=== PATIENT | male | born 1960 | race Caucasian/White ===

== ENCOUNTER 2020-02-08 18:26 | Inpatient (IN) | payer BC, OTHER ==
[2020-02-08] MEDS ORDERED: VANCOMYCIN 1 GM/VIAL ONE (19:14)
[2020-02-08] MEDS ORDERED: NA CHLORIDE 0.9% 250 ML ONE (19:14)
[2020-02-08] MEDS ORDERED: ACETAMINOPHEN 500 MG TAB ONE (19:14)
[2020-02-08] MEDS ORDERED: NA CHLORIDE 0.9% 500 ML ONE (19:15)
[2020-02-08] MEDS ORDERED: NA CHLORIDE 0.9% 3,000 ML ONE (19:15)
--- NOTE | 2020-02-08 19:25 | RAD REPORT ---
EXAM DESCRIPTION: Lisa Single View02/08/2020 7:20 pm CLINICAL HISTORY: sob COMPARISON: none FINDINGS: The lungs appear clear of acute infiltrate. The heart is normal size IMPRESSION: No acute abnormalities displayed
[2020-02-08 19:43] LABS: Absolute Lymphocytes (CBC) 2.6 K/uL (0.7-4.9); Basophils % 0.7 % (0-1.3); Hematocrit 40.5 % (39.6-49.0); Lymphocytes % 16.8 % (15.3-44.8); MPV 9.8 fL (7.6-11.3); RBC Red Blood Cell Count 4.56 M/uL (4.33-5.43)
[2020-02-08 19:54] LABS: ALT/SGPT 32 U/L (12-78); AST/SGOT 26 U/L (15-37); Albumin 3.2 g/dL (3.4-5.0); Alkaline Phosphatase 114 U/L (45-117); BUN Blood Urea Nitrogen 11 mg/dL (7-18); Bicarbonate 23 mmol/L (21-32); Bilirubin Direct 0.1 mg/dL (0-0.2); Bilirubin Total 0.6 mg/dL (0.2-1.0); Creatine Phosphokinase 140 U/L (39-308); Glucose Level 206 mg/dL (74-106); Lipase 68 U/L (73-393); Potassium 3.9 mmol/L (3.5-5.1); Protein, Total 8.5 g/dL (6.4-8.2); Sodium Level 133 mmol/L (136-145); Troponin (Emerg Dept Use Only) < 0.02 ng/mL (0.0-0.045)
[2020-02-08 19:55] LABS: Protime INR 1.12
--- NOTE | 2020-02-08 20:55 | RAD REPORT ---
EXAM DESCRIPTION: CT - Chest Abdomen Pelvis W Cont - 02/08/2020 8:39 pm CLINICAL HISTORY: Shortness of breath/abdominal pain COMPARISON: None TECHNIQUE: Computed axial tomography of the chest, abdomen and pelvis was obtained. 100 cc Isovue-30 0 was administered intravenously. Oral contrast was not requested. This limits evaluation of bowel. All CT scans are performed using dose optimization technique as appropriate and may include automated exposure control or mA/KV adjustment according to patient size. FINDINGS: 6 x 3 centimeter area of consolidation is present within the medial left lower lobe. Calci fied granuloma is present within the right lung. No mediastinal or hilar lymphadenopathy No pleural effusion Fatty liver The spleen, pancreas, adrenals and kidneys unremarkable No evidence of diverticulitis. Minimal anterior subluxation L5 on S1. Spondylolysis L5 IMPRESSION: A 6 x 3 centimeter area of consolidation medial left lower lobe consistent with pneumoni a. This should be followed until it has cleared to help exclude post obstructive process/underlying m ass
--- NOTE | 2020-02-08 21:14 | ER ---
Nurse's Notes [facility] Name: Patrice Moya Age: 59 yrs Sex: Male : 1960 Arrival Date: 02/08/2020 Time: 18:29 Bed 15 Private MD: Diagnosis: Severe sepsis;Pneumonia due to other specified bacteria Presentation: 02/07 18:34 Chief complaint: Patient states: Fever, cough and SOB since last night. Coronavirus ca1 screen: Surgical mask placed on patient. Patient moved to private room, placed in contact and droplet isolation with eye protection until further assessment. Patient reports a cough. Patient reports shortness of breath or difficulty breathing. Patient reports a measured and/or subjective temperature greater than 100.4F. Patient denies travel on a cruise ship or to a country the [facility] currently lists as an affected area. Patient denies contact with known and/or suspected case of COVID-19. Ebola Screen: Patient negative for fever greater than or equal to 101.5 degrees Fahrenheit, and additional compatible Ebola Virus Disease symptoms Patient denies exposure to infectious person. Patient denies travel to an Ebola-affected area in the 21 days before illness onset. No symptoms or risks identified at this time. Initial Sepsis Screen: Does the patient meet any 2 criteria? Temp <36.0*C (96.8*F)) or > 38.3*C (100.9*F). HR > 90 bpm. Yes Does the patient have a suspected source of infection? Yes: Productive cough/pneumonia. Risk Assessment: Do you want to hurt yourself or someone else? Patient reports no desire to harm self or others. Onset of symptoms was February 08, 2020. 18:34 Method Of Arrival: Ambulatory ca1 18:34 Acuity: ЕЛЕНА 2 ca1 Triage Assessment: 18:48 General: Appears in no apparent distress. comfortable, obese, Behavior is calm, bp cooperative, appropriate for age. Pain: Complains of pain in right flank. EENT: No deficits noted. Neuro: No deficits noted. Cardiovascular: Rhythm is sinus tachycardia. Respiratory: Reports shortness of breath cough that is Onset: The symptoms/episode began/occurred today, the patient has moderate shortness of breath. GI: No signs and/or symptoms were reported involving the gastrointestinal system. : No signs and/or symptoms were reported regarding the genitourinary system. Derm: No deficits noted. Musculoskeletal: No deficits noted. Historical: - Allergies: 18:37 Aspirin; ca1 - PMHx: 18:37 Diabetes - NIDDM; Hypertension; ca1 - Immunization history:: Adult Immunizations up to date, Pneumococcal vaccine is up to date, Flu vaccine is up to date. - Social history:: Smoking status: Patient reports the use of cigarette tobacco products, smokes one pack cigarettes per day. Screenin:53 Abuse screen: Denies threats or abuse. Denies injuries from another. Nutritional bp screening: No deficits noted. Tuberculosis screening: No symptoms or risk factors identified. Fall Risk None identified. Assessment: 18:52 General: SEE TRIAGE NOTE. Cardiovascular: Rhythm is sinus tachycardia. Respiratory: bp Airway is patent Respiratory effort is even, unlabored, Breath sounds are coarse bilaterally. 19:51 General: Appears in no apparent distress. comfortable, Behavior is calm, cooperative. mg2 Pain: Complains of pain in back and right flank. Neuro: Level of Consciousness is awake, alert, obeys commands, Oriented to person, place, time, situation. Respiratory: Reports shortness of breath cough that is. GI: No signs and/or symptoms were reported involving the gastrointestinal system. :. EENT: No signs and/or symptoms were reported regarding the EENT system. Derm: Skin is intact, is healthy with good turgor, Skin is pink, warm \T\ dry. normal. Musculoskeletal: Circulation, motion, and sensation intact. Capillary refill < 3 seconds. 20:21 Reassessment: Patient appears in no apparent distress at this time. Patient and/or mg2 family updated on plan of care and expected duration. Pain level reassessed. Patient is alert, oriented x 3, equal unlabored respirations, skin warm/dry/pink. 22:29 Reassessment: Patient appears in no apparent distress at this time. Patient and/or mg2 family updated on plan of care and expected duration. Pain level reassessed. Patient is alert, oriented x 3, equal unlabored respirations, skin warm/dry/pink. 22:30 Reassessment: nurse from [facility] will call me back to receive the report. mg2 02/08 00:20 Reassessment: Patient appears in no apparent distress at this time. mg2 00:20 Reassessment: called for report but the nurse is still busy. mg2 00:51 Reassessment: Patient appears in no apparent distress at this time. Patient and/or mg2 family updated on plan of care and expected duration. Pain level reassessed. Patient is alert, oriented x 3, equal unlabored respirations, skin warm/dry/pink. Vital Signs: 02/07 18:34 BP 141 / 81; Pulse 121; Resp 19 S; Temp 103.1(O); Pulse Ox 97% on R/A; Weight 124.74 kg ca1 (R); Height 5 ft. 8 in. (172.72 cm) (R); Pain 3/10; 20:20 Temp 101.3(O); mg2 21:00 BP 137 / 67; Pulse 96; Resp 18; Pulse Ox 97% on R/A; mg2 22:22 BP 145 / 78; Pulse 88; Resp 17; Temp 99(O); Pulse Ox 98% on R/A; mg2 23:30 BP 135 / 78; Pulse 81; Resp 18; Pulse Ox 98% on R/A; mg2 02/08 00:38 BP 125 / 78; Pulse 82; Resp 18; Temp 101(O); Pulse Ox 98% on R/A; mg2 02/07 18:34 Body Mass Index 41.81 (124.74 kg, 172.72 cm) ca1 ED Course: 02/07 18:29 Patient arrived in ED. ag5 18:36 Triage completed. ca1 18:37 Arm band placed on right wrist. ca1 18:38 Ady Correia, CHERRY is Primary Nurse. bp 18:38 Filemon Dorsey PA is PHCP. jr8 18:38 Oswaldo Mosquera MD is Attending Physician. jr8 18:53 Patient has correct armband on for positive identification. Bed in low position. Call bp light in reach. Side rails up X2. 19:21 Chest Single View XRAY In Process Unspecified. EDMS 19:30 Inserted saline lock: 20 gauge in right forearm, using aseptic technique. Blood mg2 collected. 19:51 No provider procedures requiring assistance completed. mg2 20:39 CT Chest, Abdomen, Pelvis - W/Contrast In Process Unspecified. EDMS 21:12 Conner Romero MD is Hospitalizing Provider. jr8 21:58 Patient admitted, IV remains in place. mg2 Administered Medications: 19:30 Drug: Acetaminophen 1000 mg Route: PO; mg2 21:58 Follow up: Response: No adverse reaction mg2 19:38 Drug: NS 0.9% (30 ml/kg) 30 ml/kg Route: IV; Rate: bolus; Site: right forearm; mg2 22:21 Follow up: Response: No adverse reaction; IV Status: Completed infusion; IV Intake: mg2 3500ml 19:38 Drug: Cefepime 1 grams Route: IVPB; Rate: 200 ml/hr; Infused Over: 30 mins; Site: right mg2 antecubital; 21:58 Follow up: Response: No adverse reaction; IV Status: Completed infusion mg2 20:20 Drug: vancoMYCIN 1 grams Route: IVPB; Infused Over: 2 hrs; Site: right antecubital; mg2 22:21 Follow up: Response: No adverse reaction; IV Status: Completed infusion; IV Intake: mg2 250ml 02/08 00:47 Drug: Tylenol 1000 mg Route: PO; mg2 01:04 Follow up: Response: No adverse reaction mg2 Intake: 02/07 22:21 IV: 3500ml; Total: 3500ml. mg2 22:21 IV: 250ml; Total: 3750ml. mg2 Output: 22:22 Urine: 800ml (Voided); Total: 800ml. mg2 Outcome: 21:12 Decision to Hospitalize by Provider. jr8 02/08 01:03 Admitted to Tele accompanied by nurse, via stretcher, room 413, with chart, Report mg2 called to CHERRY Parsons Condition: stable Instructed on the need for admit, Demonstrated understanding of instructions. 01:04 Patient left the ED. mg2 Signatures: Dispatcher [employer] EDMS Filemon Dorsey PA PA jr8 Ady Correia RN RN bp [place], Michele, RN RN mg2 Anu Bartlett RN RN ca1 Gaskin, Ajare 5
--- NOTE | 2020-02-08 21:14 | EDPHYS ---
Physician Documentation [facility] Name: Patrice Moya Age: 59 yrs Sex: Male : 1960 Arrival Date: 02/08/2020 Time: 18:29 Bed 15 Private MD: ED Physician Oswaldo Mosquera HPI: 02/07 20:09 This 59 yrs old Male presents to ER via Ambulatory with complaints of Fever, jr8 Flank Pain, Breathing Difficulty. 20:09 The patient reports fever, with an emergency department temperature of 103 degrees jr8 Fahrenheit. Onset: The symptoms/episode began/occurred acutely, yesterday. Modifying factors: there are no obvious modifying factors. Associated signs and symptoms: Pertinent positives: chest pain, cough. Severity of symptoms: At their worst the symptoms were moderate in the emergency department the symptoms are unchanged. The patient has not experienced similar symptoms in the past. The patient has not recently seen a physician. Historical: - Allergies: 18:37 Aspirin; ca1 - PMHx: 18:37 Diabetes - NIDDM; Hypertension; ca1 - Immunization history:: Adult Immunizations up to date, Pneumococcal vaccine is up to date, Flu vaccine is up to date. - Social history:: Smoking status: Patient reports the use of cigarette tobacco products, smokes one pack cigarettes per day. ROS: 20:09 Eyes: Negative for injury, pain, redness, and discharge, ENT: Negative for injury, jr8 pain, and discharge, Neck: Negative for injury, pain, and swelling, Back: Negative for injury and pain, MS/Extremity: Negative for injury and deformity, Skin: Negative for injury, rash, and discoloration, Neuro: Negative for headache, weakness, numbness, tingling, and seizure. 20:09 Constitutional: Positive for fever. 20:09 Cardiovascular: Positive for chest pain, Negative for edema, orthopnea, palpitations, paroxysmal nocturnal dyspnea. 20:09 Respiratory: Positive for cough, shortness of breath. 20:09 Abdomen/GI: Positive for abdominal pain, nausea. Exam: 20:09 Eyes: Pupils equal round and reactive to light, extra-ocular motions intact. Lids and jr8 lashes normal. Conjunctiva and sclera are non-icteric and not injected. Cornea within normal limits. Periorbital areas with no swelling, redness, or edema. ENT: Nares patent. No nasal discharge, no septal abnormalities noted. Tympanic membranes are normal and external auditory canals are clear. Oropharynx with no redness, swelling, or masses, exudates, or evidence of obstruction, uvula midline. Mucous membranes moist. Neck: Trachea midline, no thyromegaly or masses palpated, and no cervical lymphadenopathy. Supple, full range of motion without nuchal rigidity, or vertebral point tenderness. No Meningismus. Respiratory: Lungs have equal breath sounds bilaterally, clear to auscultation and percussion. No rales, rhonchi or wheezes noted. No increased work of breathing, no retractions or nasal flaring. Abdomen/GI: Soft, non-tender, with normal bowel sounds. No distension or tympany. No guarding or rebound. No evidence of tenderness throughout. Back: No spinal tenderness. No costovertebral tenderness. Full range of motion. Skin: Warm, dry with normal turgor. Normal color with no rashes, no lesions, and no evidence of cellulitis. MS/ Extremity: Pulses equal, no cyanosis. Neurovascular intact. Full, normal range of motion. Neuro: Awake and alert, GCS 15, oriented to person, place, time, and situation. Cranial nerves II-XII grossly intact. Motor strength 5/5 in all extremities. Sensory grossly intact. Cerebellar exam normal. Normal gait. 20:09 Cardiovascular: Rate: tachycardic, Rhythm: regular, Pulses: Pulses are 2+ in right radial artery and left radial artery. Heart sounds: normal, normal S1and S2, no S3 or S4, no murmur, no rub, no gallop, Edema: is not appreciated, JVD: is not appreciated. Vital Signs: 18:34 BP 141 / 81; Pulse 121; Resp 19 S; Temp 103.1(O); Pulse Ox 97% on R/A; Weight 124.74 kg ca1 (R); Height 5 ft. 8 in. (172.72 cm) (R); Pain 3/10; 20:20 Temp 101.3(O); mg2 21:00 BP 137 / 67; Pulse 96; Resp 18; Pulse Ox 97% on R/A; mg2 22:22 BP 145 / 78; Pulse 88; Resp 17; Temp 99(O); Pulse Ox 98% on R/A; mg2 23:30 BP 135 / 78; Pulse 81; Resp 18; Pulse Ox 98% on R/A; mg2 02/08 00:38 BP 125 / 78; Pulse 82; Resp 18; Temp 101(O); Pulse Ox 98% on R/A; mg2 02/07 18:34 Body Mass Index 41.81 (124.74 kg, 172.72 cm) ca1 MDM: 02/07 18:38 Patient medically screened. [facility] 21:11 Data reviewed: vital signs, nurses notes, lab test result(s), EKG, radiologic studies, [facility] CT scan, plain films. Data interpreted: Pulse oximetry: on room air is 97 %. Interpretation: normal. Counseling: I had a detailed discussion with the patient and/or guardian regarding: the historical points, exam findings, and any diagnostic results supporting the discharge/admit diagnosis, lab results, radiology results, the need for further work-up and treatment in the hospital. Physician consultation: Conner Romero MD was called at 21:12, was contacted at 21:12, regarding admission, to the telemetry unit. consult, patient's condition, and will see patient. 02/07 18:40 Order name: D-Dimer; Complete Time: 20:05 [facility] 02/07 18:40 Order name: Urine Culture [facility] 02/07 18:40 Order name: Fibrinogen; Complete Time: 20:05 [facility] 02/07 18:40 Order name: C-Reactive Protein; Complete Time: 20:05 [facility] 02/07 18:40 Order name: Basic Metabolic Panel; Complete Time: 20:05 [facility] 02/07 18:40 Order name: Blood Culture Adult (2) [facility] 02/07 18:40 Order name: CBC with Diff; Complete Time: 19:45 [facility] 02/07 18:40 Order name: CPK; Complete Time: 20:05 [facility] 02/07 18:40 Order name: Lactate; Complete Time: 20:05 [facility] 02/07 18:40 Order name: LFT's; Complete Time: 20:05 [facility] 02/07 18:40 Order name: Lipase; Complete Time: 20:05 [facility] 02/07 18:40 Order name: Procalcitonin; Complete Time: 20:08 [facility] 02/07 18:40 Order name: Protime (+inr); Complete Time: 20:05 [facility] 02/07 18:40 Order name: Ptt, Activated; Complete Time: 20:05 [facility] 02/07 18:40 Order name: Troponin (emerg Dept Use Only); Complete Time: 20:05 [facility] 02/07 18:40 Order name: Urine Microscopic Only; Complete Time: 22:47 [facility] 02/07 18:39 Order name: Chest Single View XRAY; Complete Time: 19:45 ca1 02/07 19:47 Order name: COVID-19 mg2 02/07 19:47 Order name: Flu; Complete Time: 20:31 mg2 02/07 20:07 Order name: CT Chest, Abdomen, Pelvis - W/Contrast; Complete Time: 21:11 [facility] 02/07 20:12 Order name: Glucose, Ancillary Testing; Complete Time: 20:19 [facility] 02/07 22:06 Order name: CONS Physician Consult [facility] 02/07 22:06 Order name: Heart Healthy [facility] 02/07 22:06 Order name: CBC with Automated Diff [facility] 02/07 22:06 Order name: CBC with Automated Diff [facility] 02/07 22:06 Order name: Comprehensive Metabolic Panel [facility] 02/07 22:06 Order name: Comprehensive Metabolic Panel [facility] 02/07 22:06 Order name: Lactate [facility] 02/07 22:06 Order name: Lactate [facility] 02/07 22:06 Order name: Lipid Profile [facility] 02/07 22:06 Order name: Lipid Profile [facility] 02/07 22:06 Order name: Magnesium [facility] 02/07 22:06 Order name: Magnesium [facility] 02/07 22:06 Order name: Phosphorus [facility] 02/07 22:06 Order name: Phosphorus [facility] 02/07 22:06 Order name: Protime (+INR) [facility] 02/07 22:06 Order name: Protime (+INR) [facility] 02/07 22:06 Order name: PTT, Activated Partial Thromb [facility] 02/07 22:06 Order name: PTT, Activated Partial Thromb [facility] 02/07 22:16 Order name: Urine Dipstick--Ancillary (enter results) la 02/07 22:40 Order name: Urine Dipstick-Ancillary; Complete Time: 22:47 [facility] 02/07 18:39 Order name: Urine Dipstick-Ancillary (obtain specimen); Complete Time: 22:22 ca1 02/07 18:40 Order name: Accucheck; Complete Time: 19:49 jr8 02/07 18:40 Order name: Cardiac monitoring; Complete Time: 19:49 8 02/07 18:40 Order name: EKG - Nurse/Tech; Complete Time: 19:49 jr8 02/07 18:40 Order name: IV Saline Lock - Large Bore; Complete Time: 19:49 jr8 02/07 18:40 Order name: Labs collected and sent; Complete Time: 19:49 8 02/07 18:40 Order name: O2 Per Protocol; Complete Time: 19:49 8 02/07 18:40 Order name: O2 Sat Monitoring; Complete Time: 19:49 jr8 Administered Medications: 19:30 Drug: Acetaminophen 1000 mg Route: PO; mg2 21:58 Follow up: Response: No adverse reaction mg2 19:38 Drug: NS 0.9% (30 ml/kg) 30 ml/kg Route: IV; Rate: bolus; Site: right forearm; mg2 22:21 Follow up: Response: No adverse reaction; IV Status: Completed infusion; IV Intake: mg2 3500ml 19:38 Drug: Cefepime 1 grams Route: IVPB; Rate: 200 ml/hr; Infused Over: 30 mins; Site: right mg2 antecubital; 21:58 Follow up: Response: No adverse reaction; IV Status: Completed infusion mg2 20:20 Drug: vancoMYCIN 1 grams Route: IVPB; Infused Over: 2 hrs; Site: right antecubital; mg2 22:21 Follow up: Response: No adverse reaction; IV Status: Completed infusion; IV Intake: mg2 250ml 02/08 00:47 Drug: Tylenol 1000 mg Route: PO; mg2 01:04 Follow up: Response: No adverse reaction mg2 Disposition: 09:10 Co-signature as Attending Physician, Oswaldo Mosquera MD I agree with the assessment and kdr plan of care. Disposition: 02/08/20 21:12 Hospitalization ordered by Conner Romero for Inpatient Admission. Preliminary diagnosis are Severe sepsis, Pneumonia due to other specified bacteria. - Bed requested for Telemetry/MedSurg (Inpatient). - Status is Inpatient Admission. mg2 - Condition is Stable. - Problem is new. - Symptoms have improved. Critical care time excluding procedures: 02/07 21:11 Critical care time: Bedside Care: 20 minutes, Consultation: 10 minutes. Total time: 30 jr8 minutes Signatures: Dispatcher [employer] EDMS Stacy Chau RN RN Oswaldo Olivarez MD MD kdr Roszak, Josh, PA PA jr8 Milind Vasquez RN RN mg2 Anu Bartlett RN RN ca1 Corrections: (The following items were deleted from the chart) 19:19 18:41 Chest Single View+RAD.RAD.BRZ ordered. EDMS EDMS 19:49 18:39 Accucheck ordered. ca1 mg2 19:50 18:39 Cardiac monitoring ordered. ca1 mg2 19:50 18:39 EKG - Nurse/Tech ordered. ca1 mg2 19:50 18:39 IV Saline Lock - Large Bore ordered. ca1 mg2 19:50 18:39 Labs collected and sent ordered. ca1 mg2 19:50 18:39 Oxygen Per Protocol ordered. ca1 mg2 19:51 18:39 O2 Sat Monitoring ordered. ca1 mg2 20:00 18:39 CBC+H.LAB.BRZ ordered. EDMS EDMS 20:00 18:40 PROTIME (+INR)+COAG.LAB.BRZ ordered. EDMS EDMS 20:00 18:40 PTT, ACTIVATED+COAG.LAB.BRZ ordered. EDMS EDMS 21:35 18:39 AMYLASE, SERUM+C.LAB.BRZ ordered. EDMS EDMS 21:35 18:39 BASIC METABOLIC PANEL+C.LAB.BRZ ordered. EDMS EDMS 21:35 18:39 CKMB+C.LAB.BRZ ordered. EDMS EDMS 21:35 18:39 CREATINE PHOSPHOKINASE+C.LAB.BRZ ordered. EDMS EDMS 21:35 18:39 LACTATE+C.LAB.BRZ ordered. EDMS EDMS 21:35 18:39 HEPATIC FUNCTION+C.LAB.BRZ ordered. EDMS EDMS 21:35 18:40 LIPASE+C.LAB.BRZ ordered. EDMS EDMS 21:35 18:40 TROPONIN (EMERG DEPT USE ONLY)+C.LAB.BRZ ordered. EDMS EDMS 21:36 18:39 BLOOD CULTURE*+BA.LAB.BRZ ordered. EDMS EDMS 21:36 18:40 Procalcitonin+C.LAB.BRZ ordered. EDMS EDMS 21:36 18:40 UA MICROSCOPIC+U.LAB.BRZ ordered. EDMS EDMS 22:23 21:12 Hospitalization Ordered by Conner Romero MD for Inpatient Admission. Preliminary kl diagnosis is Severe sepsis; Pneumonia due to other specified bacteria. Bed requested for Telemetry/MedSurg (Inpatient). Status is Inpatient Admission. Condition is Stable. Problem is new. Symptoms have improved. jr8 23:09 18:40 Urine Dipstick-Ancillary ordered. jr8 mg2 02/08 01:04 02/07 22:23 02/08/2020 21:12 Hospitalization Ordered by Conner Romero MD for Inpatient mg2 Admission. Preliminary diagnosis is Severe sepsis; Pneumonia due to other specified bacteria. Bed requested for Telemetry/MedSurg (Inpatient). Status is Inpatient Admission. Condition is Stable. Problem is new. Symptoms have improved. kl
[2020-02-08] MEDS ORDERED: ALBUTEROL 2.5 MG/3 ML NEB SOL NEB PRN (21:59)
[2020-02-08] MEDS ORDERED: ONDANSETRON 4 MG/2 ML VIAL IV PRN (21:59)
[2020-02-08] MEDS ORDERED: ACETAMINOPHEN 500 MG TAB PO PRN (21:59)
[2020-02-08] MEDS ORDERED: Levofloxacin 750mg IV 750 MG/150 ML BAG IV SCH (22:00)
[2020-02-08 22:40] LABS: Urine Blood NEGATIVE (NEG); Urine Glucose NEGATIVE (NEG); Urine Protein NEGATIVE (NEG); Urine Specific Gravity <1.005 (1.005-1.030)
[2020-02-08 22:41] LABS: Urine Bacteria <20 /HPF (NONE SEEN); Urine Culture Reflex Order NOT NEEDED; Urine RBC NONE SEEN /HPF (NONE SEEN)
[2020-02-09] MEDS ORDERED: ACETAMINOPHEN 500 MG TAB ONE (00:51)
[2020-02-09] MEDS: NA CHLORIDE 0.9% 1,000 ML IV SCH ×3 (01:35→16:23)
[2020-02-09 01:47] VITALS: BMI 41.3
--- NOTE | 2020-02-09 02:29 | P.HP ---
Certification for Inpatient Patient admitted to: Inpatient With expected LOS: >2 Midnights Patient will require the following post-hospital care: None Practitioner: I am a practitioner with admitting privileges, knowledge of patient current condition, hospital course, and medical plan of care. Services: Services provided to patient in accordance with Admission requirements found in Title 42 Section 412.3 of the Code of Federal Regulations Patient History Date of Service: 02/08/20 Reason for admission: Pneumonia; possibly postobstructive pneumonia History of Present Illness: Patient is a 59-year-old gentleman who came to the hospital with coughing & congestion. Patient has been having fever and congestion for the last 24-48 hr. Patient denies any sick contact. Patient has not been traveling anywhere. He has been having shortness of breath and difficulty breathing for the last 2 days. He had a temp of a 101 so he came into the emergency room for further evaluation. Patient denies having prior episode. In the ER, patient's workup revealed a postobstructive pneumonia. Chest x-ray/CT scan revealed a 6 x 3 cm area of consolidation in the left lower lobe. This could possibly be a postobstructive pneumonia. Patient will be admitted to the hospital for further evaluation. Patient will also have COVID-19 testing performed because of the infiltrate. Patient denies any weight loss. Allergies aspirin Allergy (Verified 02/08/20 22:28) Rash Home medications list reviewed: Yes Home Medications: NK [No Home Meds] 02/09/20 - Past Medical/Surgical History Has patient received pneumonia vaccine in the past: No Diabetic: No Past Medical History: Patient denies medical history -: Type 2 diabetes -: Hypertension Past Surgical History: Patient denies surgical history - Family History Father Family History: Reviewed- Non-Contributory - Social History Smoking Status: Heavy Tobacco smoker (>10 cigarettes/day) Alcohol use: No CD- Drugs: No Review of Systems 10-point ROS is otherwise unremarkable Physical Examination - Vital Signs Temperature: 100.8 F Blood Pressure: 136/66 Pulse: 93 Respirations: 20 Pulse Ox (%): 97 - Physical Exam General: Alert, In no apparent distress, Oriented x3 HEENT: Atraumatic, PERRLA, Mucous membr. moist/pink, EOMI, Sclerae nonicteric Neck: Supple, 2+ carotid pulse no bruit, No LAD, Without JVD or thyroid abnormality Respiratory: Diminished, Rhonchi/gurgles (Left lower lobe) Cardiovascular: Regular rate/rhythm, Normal S1 S2, Systolic murmur Gastrointestinal: Normal bowel sounds, Soft and benign, Non-distended, No tenderness Musculoskeletal: No clubbing, No swelling, No tenderness Integumentary: No rashes Neurological: Normal gait, Normal speech, Normal strength at 5/5 x4 extr, Normal tone, Sensation intact, Cranial nerves 3-12 intact, Normal affect Lymphatics: No axilla or inguinal lymphadenopathy - Studies Laboratory Data (last 24 hrs) 02/08/20 19:03: WBC 15.6 H, Hgb 13.7, Hct 40.5, Plt Count 178 02/08/20 19:03: Sodium 133 L, Potassium 3.9, BUN 11, Creatinine 0.94, Glucose 206 H, Total Bilirubin 0.6, AST 26, ALT 32, Alkaline Phosphatase 114, Lipase 68 L 02/08/20 19:03: PT 13.2 H, INR 1.12, APTT 30.8 02/08/20 18:39: PT Cancelled, INR Cancelled, APTT Cancelled 02/08/20 18:39: WBC Cancelled, Hgb Cancelled, Hct Cancelled, Plt Count Cancelled 02/08/20 18:39: Sodium Cancelled, Potassium Cancelled, BUN Cancelled, Creatinine Cancelled, Glucose Cancelled, Total Bilirubin Cancelled, AST Cancelled, ALT Cancelled, Alkaline Phosphatase Cancelled, Amylase Cancelled, Lipase Cancelled Microbiology Data (last 24 hrs): 02/08/20 19:38 Nasopharnyx Influenza Type A Antigen Screen - Final 02/08/20 19:38 Nasopharnyx Influenza Type B Antigen Screen - Final Assessment & Plan - Problems (Diagnosis) (1) Left lower lobe pneumonia Current Visit: Yes Status: Acute (2) Hypertension Current Visit: Yes Status: Acute (3) Type 2 diabetes mellitus Current Visit: Yes Status: Acute (4) Leukocytosis Current Visit: Yes Status: Acute (5) Postobstructive pneumonia Current Visit: Yes Status: Acute - Plan 1. Continue with IV antibiotics 2. Awaiting sputum and blood culture 3. Repeat chest x-ray 4. Monitor postobstructive pneumonia 5. Pulmonary consultation 6. Continue with nebs, steroids, and continue antibiotics 7. O2 per protocol 8. Continue with gentle hydration 9. Repeat labs including CBC and renal function in a.m. 10. GI and DVT prophylaxis Discharge Plan: Home Plan to discharge in: Greater than 2 days - Advance Directives Does patient have a Living Will: No Does patient have a Durable POA for Healthcare: No - Code Status/Comfort Care Code Status Assessed: Yes Code Status: Full Code Critical Care: No Time Spent Managing PTS Care (In Minutes): 40
[2020-02-09 04:05] LABS: Protime INR 1.19
[2020-02-09 04:06] LABS: Absolute Lymphocytes (CBC) 2.5 K/uL (0.7-4.9); Basophils % 0.8 % (0-1.3); Hematocrit 36.8 % (39.6-49.0); Lymphocytes % 19.3 % (15.3-44.8); MPV 9.1 fL (7.6-11.3)
[2020-02-09 04:10] LABS: ALT/SGPT 25 U/L (12-78); AST/SGOT 16 U/L (15-37); Albumin 2.6 g/dL (3.4-5.0); Alkaline Phosphatase 90 U/L (45-117); BUN Blood Urea Nitrogen 9 mg/dL (7-18); Bicarbonate 23 mmol/L (21-32); Bilirubin Total 0.6 mg/dL (0.2-1.0); Glucose Level 191 mg/dL (74-106); HDL Cholesterol 34 mg/dL (40-60); LDL Cholesterol, Calculated 40 (<130); Phosphorus 2.9 mg/dL (2.5-4.9); Potassium 3.7 mmol/L (3.5-5.1); Protein, Total 7.1 g/dL (6.4-8.2); Sodium Level 137 mmol/L (136-145)
[2020-02-09] MEDS ORDERED: NA CHLORIDE 0.9% 0 ML IV ONE (05:28)
[2020-02-09] MEDS ORDERED: PIPERACIL/TAZO 3.375 GM VIAL IV ONE (05:30)
[2020-02-09] MEDS ORDERED: NA CHLORIDE 0.9% 100 ML ONE (05:30)
[2020-02-09] MEDS: METHYLPREDNISOLONE 40 MG INJ IV SCH ×3 (05:35→16:23)
[2020-02-09] MEDS: PIPER/TAZO/NS 3.375gm 3.375 GM/100 ML BAG IVPB SCH ×3 (05:36→13:41)
[2020-02-09] MEDS: IPRATROPIUM BROM 0.5MG/2.5ML NEB SCH ×4 (05:42→19:53)
[2020-02-09] MEDS ORDERED: ALBUTEROL 2.5 MG/3 ML NEB SOL NEB SCH (06:00)
[2020-02-09] MEDS ORDERED: POTASSIUM CL SA 10 MEQ TAB PO ONE (07:32)
--- NOTE | 2020-02-09 07:44 | P.PN ---
Subjective Date of Service: 02/09/20 Subjective: No new changes, No C/O voiced, Other (Still having some pleuritic chest pain. Pain on deep inspiration. Had a fever last night. Awaiting COVID- 19 testing) Review of Systems 10-point ROS is otherwise unremarkable Physical Examination - Vital Signs Temperature: 100.8 F Blood Pressure: 136/66 Pulse: 93 Respirations: 20 Pulse Ox (%): 97 - Physical Exam General: Alert, In no apparent distress, Oriented x3 Respiratory: Diminished, Rhonchi/gurgles Cardiovascular: Regular rate/rhythm, Normal S1 S2, No murmurs Gastrointestinal: Normal bowel sounds, Soft and benign, Non-distended, No tenderness, No rebound, No guarding Musculoskeletal: No clubbing, No swelling, No tenderness Neurological: Sensation intact, Cranial nerves 3-12 intact - Studies Laboratory Data (last 24 hrs) 02/08/20 19:03: WBC 15.6 H, Hgb 13.7, Hct 40.5, Plt Count 178 02/08/20 19:03: Sodium 133 L, Potassium 3.9, BUN 11, Creatinine 0.94, Glucose 206 H, Total Bilirubin 0.6, AST 26, ALT 32, Alkaline Phosphatase 114, Lipase 68 L 02/08/20 19:03: PT 13.2 H, INR 1.12, APTT 30.8 02/08/20 18:39: PT Cancelled, INR Cancelled, APTT Cancelled 02/08/20 18:39: WBC Cancelled, Hgb Cancelled, Hct Cancelled, Plt Count Cancelled 02/08/20 18:39: Sodium Cancelled, Potassium Cancelled, BUN Cancelled, Creatinine Cancelled, Glucose Cancelled, Total Bilirubin Cancelled, AST Cancelled, ALT Cancelled, Alkaline Phosphatase Cancelled, Amylase Cancelled, Lipase Cancelled Microbiology Data (last 24 hrs): 02/08/20 19:03 Blood - Blood Anaerobic Blood Culture - Final 02/08/20 19:47 Nasopharnyx Coronavirus COVID-19 PCR - Final 02/08/20 19:38 Nasopharnyx Influenza Type A Antigen Screen - Final 02/08/20 19:38 Nasopharnyx Influenza Type B Antigen Screen - Final Medications List Reviewed: Yes Assessment & Plan - Problems (Diagnosis) (1) Left lower lobe pneumonia Current Visit: Yes Status: Acute Qualifiers: Pneumonia type: due to group B Streptococcus Qualified Code(s): J15.3 - Pneumonia due to streptococcus, group B (2) Hypertension Current Visit: Yes Status: Acute Qualifiers: Hypertension type: essential hypertension Qualified Code(s): I10 - Essential (primary) hypertension (3) Type 2 diabetes mellitus Current Visit: Yes Status: Acute Qualifiers: Diabetes mellitus watermelon harvesting supervisor insulin use: with [facility] use (4) Postobstructive pneumonia Current Visit: Yes Status: Acute (5) Leukocytosis Current Visit: Yes Status: Acute (6) Pleuritic chest pain Current Visit: Yes Status: Acute - Plan Continue with current plan of care as mentioned below: 1. Continue with IV antibiotics 2. Awaiting sputum and blood culture 3. Repeat chest x-ray 4. Monitor postobstructive pneumonia; will need close out patient follow-up; anticipate discharge in 48-72 hrs 5. Pulmonary consultation pending 6. Continue with nebs, steroids, and continue antibiotics 7. O2 per protocol 8. Continue with gentle hydration 9. Repeat labs including CBC and renal function in a.m. 10. GI and DVT prophylaxis Discharge Plan: Home Plan to discharge in: Greater than 2 days - Advance Directives Does patient have a Living Will: No Does patient have a Durable POA for Healthcare: No - Code Status/Comfort Care Code Status: Full Code Critical Care: No Time Spent Managing PTS Care (In Minutes): 30
[2020-02-09] MEDS ORDERED: D50W 25 GM/50 ML SYRINGE/VIAL IV PRN (21:21)
[2020-02-09] MEDS ORDERED: GLUCAGON 1 MG/VIAL IM PRN (21:21)
[2020-02-09] MEDS ORDERED: INSULIN 70/30 100 UNITS/ML SQ ONE (21:22)
[2020-02-10] MEDS: METHYLPREDNISOLONE 40 MG INJ IV SCH ×2 (00:28→05:13)
[2020-02-10] MEDS: PIPER/TAZO/NS 3.375gm 3.375 GM/100 ML BAG IVPB SCH ×2 (00:30→10:04)
[2020-02-10] MEDS: IPRATROPIUM BROM 0.5MG/2.5ML NEB SCH ×3 (00:35→12:42)
[2020-02-10] MEDS: NA CHLORIDE 0.9% 1,000 ML IV SCH (05:12)
[2020-02-10 05:39] LABS: Potassium 4.2 mmol/L (3.5-5.1)
--- NOTE | 2020-02-10 06:26 | EKG ---
Test Date: 2020-02-08 Test Time: 19:25:17 Flowers Salesperson: MG MEASUREMENT RESULTS: Intervals: Rate: 114 CO: 162 QRSD: 92 QT: 322 QTc: 443 [place]: P: 48 CO: 162 QRS: 95 T: 42 INTERPRETIVE STATEMENTS: Sinus tachycardia Rightward axis Borderline ECG No previous ECG available for comparison Electronically Signed On 02-10-20 06:24:12 CDT by Quinton Taylor
[2020-02-10 08:49] VITALS: O2SAT 98
--- NOTE | 2020-02-10 09:28 | P.DS ---
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 Patient has been having fever and congestion for the last 24-48 hr. Patient denies any sick contact. Patient has not been traveling anywhere. He has been having shortness of breath and difficulty breathing for the last 2 days. He had a temp of a 101 so he came into the emergency room for further evaluation. Patient denies having prior episode. In the ER, patient's workup revealed a postobstructive pneumonia. Chest x-ray/CT scan revealed a 6 x 3 cm area of consolidation in the left lower lobe. This could possibly be a postobstructive pneumonia. Patient will be admitted to the hospital for further evaluation. Patient will also have COVID-19 testing performed because of the infiltrate. Patient denies any weight loss. Hospital Course: PATIENT HAS DONE WELL DURING HOSPITAL STAY. PATIENT HAS BEEN IMPROVING SIGNIFICANTLY. PATIENT IS CLINICALLY DOING WELL. CHEST X-RAY DOES NOT SHOW ANY WORSENING OF THE LEFT LOWER LOBE PNEUMONIA. PATIENT STATES HE FEELS MUCH BETTER. HE IS NOT HAVING ANY SIGNIFICANT PLEURISY. AT THIS TIME, PATIENT IS STABLE FOR DISCHARGE HOME WITH OUTPATIENT FOLLOW-UP WITH PULMONARY. PATIENT ALSO NEEDS TO FOLLOW WITH PCP. PATIENT WILL NEED OUTPATIENT IV ANTIBIOTICS FOR 1-2 WEEKS AND REPEAT CHEST X-RAY IN 1-2 WEEKS WELL. Vital Signs/Physical Exam: Temp Pulse Resp BP Pulse Ox 97.4 F 78 18 147/76 H 97 02/10/20 08:00 02/10/20 08:00 02/10/20 08:00 02/10/20 08:00 02/10/20 08:00 General: Alert, In no apparent distress, Oriented x3 Laboratory Data at Discharge: WBC 12.9 K/uL (4.3-10.9) H D 02/09/20 03:36 Hgb 12.6 g/dL (13.6-17.9) L 02/09/20 03:36 Hct 36.8 % (39.6-49.0) L 02/09/20 03:36 Plt Count 152 K/uL (152-406) 02/09/20 03:36 PT 14.0 SECONDS (9.5-12.5) H 02/09/20 03:36 INR 1.19 02/09/20 03:36 APTT 31.8 SECONDS (24.3-36.9) 02/09/20 03:36 Sodium 137 mmol/L (136-145) 02/10/20 04:43 Potassium 4.2 mmol/L (3.5-5.1) 02/10/20 04:43 BUN 16 mg/dL (7-18) 02/10/20 04:43 Creatinine 0.94 mg/dL (0.55-1.3) 02/10/20 04:43 Glucose 356 mg/dL (74-106) H 02/10/20 04:43 Phosphorus 2.9 mg/dL (2.5-4.9) 02/09/20 03:36 Magnesium 2.0 mg/dL (1.8-2.4) 02/09/20 03:36 Total Bilirubin 0.6 mg/dL (0.2-1.0) 02/09/20 03:36 AST 16 U/L (15-37) 02/09/20 03:36 ALT 25 U/L (12-78) 02/09/20 03:36 Alkaline Phosphatase 90 U/L (45-117) 02/09/20 03:36 Triglycerides 363 mg/dL (<150) H 02/09/20 03:36 Cholesterol 147 mg/dL (<200) 02/09/20 03:36 HDL Cholesterol 34 mg/dL (40-60) L 02/09/20 03:36 Cholesterol/HDL Ratio 4.32 02/09/20 03:36 Amylase Cancelled 02/08/20 18:39 Lipase 68 U/L (73-393) L 02/08/20 19:03 Home Medications: Empagliflozin [Jardiance] 1 tab PO DAILY 02/09/20 Albuterol Inhaler [Ventolin Inhaler*] 2 puff IH Q6H PRN #1 hfa.aer.ad 02/10/20 Amox/Clavulanate [Augmentin 875-125 Tab] 875 mg PO BID #14 tab 02/10/20 predniSONE [Prednisone*] 20 mg PO BID #12 tab 02/10/20 New Medications: Amox/Clavulanate [Augmentin 875-125 Tab] 875 mg PO BID #14 tab predniSONE [Prednisone*] 20 mg PO BID #12 tab Albuterol Inhaler [Ventolin Inhaler*] 2 puff IH Q6H PRN #1 hfa.aer.ad PRN Reason: Shortness Of Breath Patient Discharge Instructions: OK TO DC IV AND DC HOME. FOLLOW-UP WITH PRIMARY CARE PROVIDER IN 1-2 WEEKS. FOLLOW-UP WITH PULMONARY IN 1-2 WEEKS. RETURN TO THE ER IF SYMPTOMS WORSEN. CALL or TEXT DR. CAZARES AT [phone] IF ANY QUESTIONS REGARDING HOSPITAL STAY. PLEASE CALL THE FLOOR AT [phone] IF ANY MEDICATION OR NURSING QUESTIONS. Diet: AHA Activity: Fall precautions Followup: Ronald Beckett MD [ACTIVE - CAN ADMIT] - Time spent managing pt's care (in minutes): 35
--- NOTE | 2020-02-10 12:15 | RAD REPORT ---
EXAM DESCRIPTION: Lisa Single View02/10/2020 10:25 am CLINICAL HISTORY: Chest pain COMPARISON: February 08, 2020 FINDINGS: Patient's known left lower lobe pneumonia is not well visualized on chest x-ray as it is o bscured by the heart. No obvious change is seen. Right lung is clear of acute infiltrate. Heart is normal size
[2020-02-10 14:46] VITALS: BP 138/69; TEMP 98.1
== END 2020-02-10 14:21 | disposition home or self-care (01) | DRG 195 ==
LOC: ER 18:26 → ERHOLD 22:10 → 4TH 23:49 → 2ND 02-09 10:55
PROVIDERS: ADMIT Hospitalist; ATTEND Hospitalist
DX: J15.3 Pneumonia due to streptococcus, group B (principal); E11.9 Type 2 diabetes mellitus without complications; I10 Essential (primary) hypertension; F17.210 Nicotine dependence, cigarettes, uncomplicated; D72.829 Elevated white blood cell count, unspecified; R05 Cough; R50.9 Fever, unspecified; Z79.52 Long term (current) use of systemic steroids; Z88.8 Allergy status to other drugs, medicaments and biological substances; Z79.899 Other long term (current) drug therapy; Z20.828 Contact with and (suspected) exposure to other viral communicable diseases
CPT/HCPCS: 36415; 71045; 71260; 74177; 80048; 80053; 80061; 80076; 81003; 81015; 82550; 82947; 83605; 83690; 83735; 84100; 84145; 84484; 85025; 85379; 85384; 85610; 85730; 86140; 87040; 87086; 87088; 87804; 93005; 94640; 94760; 99285; J1815; J2543; J2920; J7030; J7040; Q9966; U0002